=== PATIENT | male | born 1945 | race Caucasian/White ===

== ENCOUNTER 2017-03-24 12:43 | Emergency (ER) | payer MEDICARE ==
[~2017-03-24] VITALS: Ht 182.9 cm; Wt 100.0 kg
[~2017-03-24 12:43] MED LIST: ALBU8I INH; CARV6.252 PO; CENTCHW3 PO; CIPR500T93 PO; CODCAP5 PO; DIAZ5 PO; ENAL10TA7 PO; FLAG250T PO; GLUCTAB PO; LINA145C PO; LOPI600T PO; NIAC250C6 PO; PROB1TAB PO; VITA200017 PO
[2017-03-24 13:02] VITALS: BP 199/107; PULSE 62; RESP 16; TEMP 98.4; O2SAT 98
--- NOTE | 2017-03-24 13:03 | PD ---
HPI . marijuana intoxication Chief Complaint: marijuana intoxication Time Seen by Provider: 13:03 Travel History International Travel<30 days: No Contact w/Intl Traveler<30days: No Traveled to known affect area: No History of Present Illness HPI 71-year-old male with history of hypertension, COPD, diabetes and hyperlipidemia here with complaints of using too much vaporized marijuana. Apparently patient was trying to use vaporized marijuana for the first time to get high, and was told only inhale for 3 seconds, but decided to use the vaporizer marijuana for a total of 6 seconds plus. He says that immediately after using it he started to feel sick to his stomach. He got very anxious. He called 911 and started to feel better, but was told his blood pressure was elevated and brought into the ED for evaluation. PFSH Past Medical History Cardiac Catheterization: Yes Cardiovascular Problems: Yes High Cholesterol: Yes Chemotherapy: Yes Chest Pain: Yes COPD: Yes Coronary Artery Disease: Yes Diabetes: Yes Diminished Hearing: Yes ([place]) Diverticulitis: Yes Gastrointestinal Disorders: Yes (GIB, IBS) Hypertension: Yes Neurologic: No Psychiatric: No Respiratory: Yes Immunizations Current: Yes Myocardial Infarction: Yes (X's 3) Past Surgical History Tonsillectomy: Yes Other Surgery: Yes (OUTPATIENT COLONOSCOPY 2005) Social History Alcohol Use: Yes (Rarely) Tobacco Use: No Substance Use: No (Denies today) Allergies-Medications (Allergen,Severity, Reaction): Coded Allergies: Thorazine (Verified Allergy, Severe, SOB, 03/24/17) Tricor (Verified Allergy, Severe, Nausea/Vomiting, 03/24/17) Zoloft (Verified Adverse Reaction, Severe, Nausea, 03/24/17) Reported Meds & Prescriptions Reported Meds & Active Scripts Active Reported Pantoprazole (Pantoprazole Sodium) 40 Mg Tab 40 Mg PO DAILY Lisinopril 10 Mg Tab 10 Mg PO DAILY Metformin (Metformin HCl) 500 Mg Tab 500 Mg PO BID With meals Linzess (Linaclotide) 145 Mcg Cap 145 Mcg PO DAILY Valium (Diazepam) 5 Mg Tab 5 Mg PO DAILY PRN Coreg (Carvedilol) 6.25 Mg Tab 6.25 Mg PO BID Ventolin Hfa 18 GM Inh (Albuterol Sulfate) 90 Mcg/Act Aer 2 Puff INH Q6H PRN Review of Systems General / Constitutional: No: Fever Eyes: No: Visual changes HENT: No: Headaches Cardiovascular: No: Chest Pain or Discomfort Respiratory: No: Shortness of Breath Gastrointestinal: No: Abdominal Pain Genitourinary: No: Dysuria Musculoskeletal: No: Pain Skin: No Rash Neurologic: No: Weakness Psychiatric: No: Depression Endocrine: No: Polydipsia Hematologic/Lymphatic: No: Easy Bruising Physical Exam Narrative GENERAL: AAO x 3, no acute distress, Well-nourished, well-developed patient. SKIN: Warm and dry. No visible rashes or bruising. HEAD: Normocephalic and atraumatic. EYES: No scleral icterus. No injection or drainage. ENT: No nasal drainage noted. Mucous membranes pink. Airway patent. NECK: Supple, trachea midline. No JVD. CARDIOVASCULAR: Regular rate and rhythm without murmurs, gallops, or rubs. RESPIRATORY: Breath sounds equal bilaterally. No accessory muscle use. No rhonchi or rales. GASTROINTESTINAL: Abdomen soft, non-tender, nondistended. EXTREMITIES: No cyanosis or edema. BACK: No obvious deformity. NEURO: CN II-12 intact, almond grinder strength normal b/l, UE and LE 5/5, no focal deficits PSYCH: AAO x 3, normal affect. Data Data Last Documented VS Vital Signs Date Time Temp Pulse Resp B/P Pulse Ox O2 Delivery O2 Flow Rate FiO2 03/24/17 13:46 60 16 169/78 97 Room Air 03/24/17 13:02 98.4 Orders Electrocardiogram (03/24/17 ) MDM Medical Decision Making Medical Screen Exam Complete: Yes Emergency Medical Condition: Yes Medical Record Reviewed: Yes Differential Diagnosis Marijuana intoxication, polysubstance abuse, anxiety Narrative Course 71-year-old male here with complaints of using too much vaporized marijuana. He has no complaints at this present time. He does have a long-standing cardiac history, therefore we will check an EKG. Case has been discussed with Dr. Fritz. EKG was reviewed by Dr. Fritz. There were no changes compared to EKG on 2015. Patient cleared for discharge. Patient's came to pick him up. Patient verbalized understanding of instructions, questions were answered, and thanked me for their care. I advised them if their condition worsens, please return to the nearest emergency room for further care. Diagnosis Primary Impression: Marijuana intoxication Qualified Code: F12.920 - Marijuana intoxication, uncomplicated Patient Instructions: General Instructions Additional Instructions: Refrain from using marijuana. Follow up with your primary care provider. Please have your blood pressure followed by your primary care provider. Med/Other Pt SpecificInfo: No Change to Meds Disposition: 01 DISCHARGE HOME Condition: Stable Esthela Wakefield Mar 24, 2017 13:03
--- NOTE | 2017-03-24 13:42 | PD ---
Data Data Last Documented VS Vital Signs Date Time Temp Pulse Resp B/P Pulse Ox O2 Delivery O2 Flow Rate FiO2 03/24/17 13:46 60 16 169/78 97 Room Air 03/24/17 13:02 98.4 Orders Electrocardiogram (03/24/17 ) [facility] Supervised Visit with [facility]: Yes Narrative Course I, Dr. Fritz, have reviewed the advance practice practitioner's documentation and am in agreement, met with the patient face to face, made the diagnosis, and the medical decision making was done by me. *My assessment and Findings: Patient seen and examined by me in addition to Esthela Youssef PA-C, this is a gentleman who presented for a chief complaint of taking too much marijuana inhaled. He apparently had liquid marijuana and nebulizer and was only supposed to take 3 seconds and instead took 6 seconds inhalation. He states now he is coming down he feels fine. He states initially he felt very jittery and his wanted him to be evaluated for possible heart attack. He has not had any chest pain at all today and no shortness of breath. EKG was unchanged from his previous EKG. See no indication for further workup of this patient this time as is feeling well like to go home. Disposition: 01 DISCHARGE HOME Condition: Stable Sandip Fritz MD Mar 24, 2017 13:42
[2017-03-24 13:46] VITALS: BP 169/78; PULSE 60; RESP 16; O2SAT 97
[2017-03-24] MEDS ORDERED: PANT40TA3 PO (14:19)
[2017-03-24] MEDS ORDERED: LISI10TA3 PO (14:19)
[2017-03-24] MEDS ORDERED: METF500T PO (14:19)
[2017-03-24] MEDS ORDERED: LINA145C PO (14:19)
[2017-03-24] MEDS ORDERED: DIAZ5 PO (14:19)
[2017-03-24] MEDS ORDERED: CARV6.25 PO (14:19)
[2017-03-24] MEDS ORDERED: VENTAER INH (14:19)
--- NOTE | 2017-03-24 17:13 | EKG ---
Date Performed: 03/24/2017 Time Performed: 13:38:38 PTAGE: 71 years EKG: Sinus rhythm POSSIBLE ANTERIOR MYOCARDIAL INFARCTION INFERIOR MYOCARDIAL INFARCTION ABNORMAL ECG No significant c hange from prior electrocardiogram. PREVIOUS TRACING : 05/18/2016 08.48 DOCTOR: Kenneth Oconnor Interpretating Date/Time 03/24/2017 17:12:45
== END 2017-03-24 14:36 | disposition home or self-care (01) ==
LOC: NEPC 12:43
DX: T40.7X1A Poisoning by cannabis (derivatives), accidental (unintentional), initial encounter (principal); I25.2 Old myocardial infarction; R94.31 Abnormal electrocardiogram [ECG] [EKG]; I10 Essential (primary) hypertension; J44.9 Chronic obstructive pulmonary disease, unspecified; E11.9 Type 2 diabetes mellitus without complications; E78.5 Hyperlipidemia, unspecified; I25.10 Atherosclerotic heart disease of native coronary artery without angina pectoris; K58.9 Irritable bowel syndrome, unspecified
CPT/HCPCS: 93005

== ENCOUNTER 2017-10-03 08:03 | Observation (INO) | payer MEDICARE ==
[2017-10-03] VITALS (9 sets, daily range): BP systolic 123–193; BP diastolic 76–103; PULSE 55–71; RESP 14–18; TEMP 97.8–98.7; O2SAT 95–100
[~2017-10-03] VITALS: Ht 182.9 cm; Wt 105.0 kg
[~2017-10-03 08:03] MED LIST changes: -ALBU8I INH; +CARV6.25 PO; -CARV6.252 PO; -CENTCHW3 PO; -CIPR500T93 PO; -CODCAP5 PO; -ENAL10TA7 PO; -FLAG250T PO; -GLUCTAB PO; +LISI10TA3 PO; -LOPI600T PO; +METF500T PO; -NIAC250C6 PO; +PANT40TA3 PO; -PROB1TAB PO; +VENTAER INH; -VITA200017 PO
[2017-10-03] MEDS ORDERED: ENAL10TA PO (08:24)
[2017-10-03] MEDS ORDERED: GLIM1TAB PO (08:26)
[2017-10-03] MEDS ORDERED: ASPI-516 CHEW (08:26)
[2017-10-03] MEDS ORDERED: MILK140C (08:26)
[2017-10-03] MEDS ORDERED: MECLIZINE HCL 25 MG TAB PO ONE (08:30)
[2017-10-03] MEDS ORDERED: CARVEDILOL 6.25 MG TAB PO ONE (08:30)
[2017-10-03] MEDS ORDERED: LISINOPRIL 10 MG TAB PO ONE (08:30)
--- NOTE | 2017-10-03 08:34 | PD ---
HPI Chief Complaint: Neuro Symptoms/ Deficits Time Seen by Provider: 08:20 Travel History International Travel<30 days: No Contact w/Intl Traveler<30days: No Traveled to known affect area: No History of Present Illness HPI This is a 72-year-old male with history of diabetes mellitus, hypertension, COPD , presents today with complaints of dizziness. Patient states he woke up at 3: 00 this morning and when he got out of bed he experienced severe dizziness. He states it was so dizzy and nauseous that he had to crawl on the floor. He states that he went back to bed and when he woke up this morning, he still had the dizziness that was persistent. He denies any head pain or neck pain. Patient does report associated nausea. The patient has not had any previous symptoms such as this in the past. Patient does report that he is going through some stress in his life and wondered if that could possibly be causing this. He denies any numbness or tingling of his extremities. There is no weakness of his extremities. There is no blurry vision or double vision. There are no other complaints at this time my examination. PFSH Past Medical History Cardiac Catheterization: Yes Cardiovascular Problems: Yes High Cholesterol: Yes Chemotherapy: Yes Chest Pain: Yes COPD: Yes Cerebrovascular Accident: Yes Coronary Artery Disease: Yes Diabetes: Yes Diminished Hearing: Yes ([place]) Diverticulitis: Yes Gastrointestinal Disorders: Yes (GIB, IBS) Hypertension: Yes Neurologic: No Psychiatric: No Respiratory: Yes Immunizations Current: Yes Myocardial Infarction: Yes (X's 3) Past Surgical History Tonsillectomy: Yes Other Surgery: No (OUTPATIENT COLONOSCOPY 2005) Social History Alcohol Use: Yes (Rarely) Tobacco Use: No Substance Use: Yes ([facility]) Allergies-Medications (Allergen,Severity, Reaction): Coded Allergies: chlorpromazine (Verified Allergy, Severe, SOB, 10/03/17) fenofibrate (Verified Allergy, Severe, Nausea/Vomiting, 10/03/17) sertraline (Verified Adverse Reaction, Severe, Nausea, 10/03/17) Reported Meds & Prescriptions Reported Meds & Active Scripts Active Reported Aspirin 81 Mg Chew 81 Mg CHEW DAILY Milk Thistle 140 Mg Cap Glimepiride 1 Mg Tab 1 Mg PO DAILY Take with breakfast or first main meal Enalapril (Enalapril Maleate) 10 Mg Tab 10 Mg PO DAILY Pantoprazole (Pantoprazole Sodium) 40 Mg Tab 40 Mg PO DAILY Metformin (Metformin HCl) 500 Mg Tab 500 Mg PO BID With meals Linzess (Linaclotide) 145 Mcg Cap 145 Mcg PO DAILY PRN Valium (Diazepam) 5 Mg Tab 5 Mg PO DAILY PRN Coreg (Carvedilol) 6.25 Mg Tab 6.25 Mg PO BID Ventolin Hfa 18 GM Inh (Albuterol Sulfate) 90 Mcg/Act Aer 2 Puff INH Q6H PRN Review of Systems Except as stated in HPI: all other systems reviewed are Neg General / Constitutional: No: Fever, Chills HENT: No: Headaches, Neck Pain Cardiovascular: No: Chest Pain or Discomfort, Palpitations Respiratory: No: Cough, Shortness of Breath Gastrointestinal: Positive: Nausea, No: Vomiting, Abdominal Pain Genitourinary: No: Frequency, Dysuria Musculoskeletal: No: Weakness, Pain Neurologic: Positive: Dizziness, Other (Dizziness/vertigo symptoms.), No: Weakness, Syncope, Headache, Change in Mentation, Paresthesia, Sensory Disturbance Physical Exam Narrative GENERAL: Well-developed well-nourished male in no acute respiratory distress. SKIN: Focused skin assessment warm/dry. HEAD: Atraumatic. Normocephalic. EYES: Extraocular muscles were intact. No nystagmus. No scleral icterus. No injection or drainage. ENT: No nasal bleeding or discharge. Mucous membranes pink and moist. NECK: Trachea midline. CARDIOVASCULAR: Regular rate and rhythm. No murmur appreciated. RESPIRATORY: No accessory muscle use. Clear to auscultation. Breath sounds equal bilaterally. GASTROINTESTINAL: Abdomen soft, non-tender, nondistended. Hepatic and splenic margins not palpable. MUSCULOSKELETAL: No obvious deformities. No clubbing. No cyanosis. No edema. NEUROLOGICAL: Awake and alert. No obvious cranial nerve deficits. Motor grossly within normal limits. Normal speech. Patient has subjective dizziness and vertigo-like symptoms. He states it is not present when lying supine. When he raises up from the bed, he experiences these symptoms. Data Data Last Documented VS Vital Signs Date Time Temp Pulse Resp B/P (MAP) Pulse Ox O2 Delivery O2 Flow Rate FiO2 10/03/17 11:04 98 Nasal Cannula 2.00 10/03/17 10:00 55 17 172/89 (116) 10/03/17 08:13 98.7 Orders Orders Electrocardiogram (10/03/17 08:20) Complete Blood Count With Diff (10/03/17 08:20) Comprehensive Metabolic Panel (10/03/17 08:20) Ct Brain W/O Iv Contrast(Rout) (10/03/17 08:20) Iv Access Insert/Monitor (10/03/17 08:20) Ecg Monitoring (10/03/17 08:20) Oximetry (10/03/17 08:20) Meclizine (Antivert) (10/03/17 08:30) Carvedilol (Coreg) (10/03/17 08:30) Lisinopril (Prinivil) (10/03/17 08:30) Place In Observation (10/03/17 ) Vital Signs (Adult) Q4H (10/03/17 10:50) Activity Oob With Assistance (10/03/17 10:50) Corduroy Cutting Supervisor / Telemetry .CONTINUOUS (10/03/17 10:50) Diet 1800 Ada Cons Carb (10/03/17 Lunch) Sodium Chlor 0.9% 1000 Ml Inj (Ns 1000 M (10/03/17 10:50) Sodium Chloride 0.9% Flush (Ns Flush) (10/03/17 11:00) Sodium Chloride 0.9% Flush (Ns Flush) (10/03/17 21:00) Acetaminophen (Tylenol) (10/03/17 11:00) Ondansetron Inj (Zofran Inj) (10/03/17 11:00) Basic Metabolic Panel (Bmp) (10/04/17 06:00) Complete Blood Count With Diff (10/04/17 06:00) Resp Oxygen Prashant C Titrat 1-4 L (10/03/17 ) Pt Request For Service (10/03/17 10:50) Scd Bilateral/Knee High SOO.BID (10/03/17 10:50) Naloxone Inj (Narcan Inj) (10/03/17 11:00) Docusate Sodium-Senna (Kaylee-Colace) (10/03/17 21:00) Magnesium Hydroxide Liq (Milk Of Magnesi (10/03/17 11:00) Orthostatic Vital Signs (10/03/17 10:59) Orthostatic Blood Pressure (10/03/17 10:59) Albuterol Hfa Inh (Proair Hfa Inh) (10/03/17 11:00) Aspirin Chew (Aspirin Chew) (10/04/17 09:00) Carvedilol (Coreg) (10/03/17 21:00) Diazepam (Valium) (10/03/17 11:00) Enalapril (Vasotec) (10/04/17 09:00) Pantoprazole (Protonix) (10/04/17 09:00) Patient Own Medication (10/04/17 09:00) Meclizine (Antivert) (10/03/17 14:00) Meclizine (Antivert) (10/03/17 14:00) Mri Brain W/O Contrast (10/03/17 ) Mra Brain W/O Contrast (Cow) (10/03/17 ) Admit Order (Ed Use Only) (10/03/17 11:47) Labs Laboratory Tests Test 10/03/17 08:32 White Blood Count 6.8 TH/MM3 Red Blood Count 4.60 MIL/MM3 Hemoglobin 14.7 GM/DL Hematocrit 41.5 % Mean Corpuscular Volume 90.2 FL Mean Corpuscular Hemoglobin 32.1 PG Mean Corpuscular Hemoglobin Concent 35.6 % Red Cell Distribution Width 13.1 % Platelet Count 243 TH/MM3 Mean Platelet Volume 7.8 FL Neutrophils (%) (Auto) 57.1 % Lymphocytes (%) (Auto) 29.4 % Monocytes (%) (Auto) 6.9 % Eosinophils (%) (Auto) 5.7 % Basophils (%) (Auto) 0.9 % Neutrophils # (Auto) 3.9 TH/MM3 Lymphocytes # (Auto) 2.0 TH/MM3 Monocytes # (Auto) 0.5 TH/MM3 Eosinophils # (Auto) 0.4 TH/MM3 Basophils # (Auto) 0.1 TH/MM3 CBC Comment DIFF FINAL Differential Comment Blood Urea Nitrogen 15 MG/DL Creatinine 1.13 MG/DL Random Glucose 169 MG/DL Total Protein 6.6 GM/DL Albumin 3.8 GM/DL Calcium Level 9.0 MG/DL Alkaline Phosphatase 70 U/L Aspartate Amino Transf (AST/SGOT) 35 U/L Alanine Aminotransferase (ALT/SGPT) 43 U/L Total Bilirubin 0.9 MG/DL Sodium Level 135 MEQ/L Potassium Level 4.6 MEQ/L Chloride Level 105 MEQ/L Carbon Dioxide Level 22.9 MEQ/L Anion Gap 7 MEQ/L Estimat Glomerular Filtration Rate 64 ML/MIN MDM Medical Decision Making Medical Screen Exam Complete: Yes Emergency Medical Condition: Yes Differential Diagnosis Metabolic derangement versus vertigo versus posterior circulation CVA Narrative Course 72-year-old male presents today with complaints of dizziness. Patient states he woke up at 3 AM with the dizziness. CT scan shows no evidence of acute findings. Patient was given meclizine. Despite the meclizine, he still has persistent dizziness. The patient will be admitted to the hospital. The case was discussed with Dr. Yoo, [facility] hospitalist, who is agreeable. He will need a posterior circulation stroke workup. Diagnosis Primary Impression: Persistent postural-perceptual dizziness Additional Impression: Rule out posterior circulation CVA Admitting Information Admitting Physician Requests: Observation Scripts Meclizine HCl (Meclizine 25) 25 Mg Tab 25 MG PO Q8HR Y for vertigo/dizziness for 30 Days, TAB 0 Refills Prov: Perla Sahu 10/04/17 Octaviano Hickey MD Oct 03, 2017 08:34
[2017-10-03 08:42] LABS: AUTOMATED NEUTROPHIL # 3.9 TH/MM3 (1.8-7.7); BASOPHIL # 0.1 TH/MM3 (0-0.2); BASOPHIL % 0.9 % (0.0-2.0); EOSINOPHIL # 0.4 TH/MM3 (0-0.4); EOSINOPHIL % 5.7 % (0.0-4.0); HEMATOCRIT 41.5 % (39.0-51.0); HEMOGLOBIN 14.7 GM/DL (13.0-17.0); LYMPH % 29.4 % (9.0-44.0); MEAN CELL VOLUME 90.2 FL (80.0-100.0); MEAN CORPUSCULAR HEMOGLOBIN 32.1 PG (27.0-34.0); MEAN CORPUSCULAR HGB CONC 35.6 % (32.0-36.0); MEAN PLATELET VOLUME 7.8 FL (7.0-11.0); MONO % 6.9 % (0.0-8.0); MONOCYTE # 0.5 TH/MM3 (0-0.9); NEUT % 57.1 % (16.0-70.0); PLATELET COUNT 243 TH/MM3 (150-450); RED CELL DISTRIBUTION WIDTH 13.1 % (11.6-17.2); WHITE BLOOD COUNT 6.8 TH/MM3 (4.0-11.0)
[2017-10-03 08:56] LABS: ALT (GPT) 43 U/L (12-78)
[2017-10-03 08:59] LABS: ALKALINE PHOSPHATASE 70 U/L (45-117); TOTAL BILIRUBIN ADULT 0.9 MG/DL (0.2-1.0); TOTAL PROTEIN 6.6 GM/DL (6.4-8.2)
[2017-10-03 09:00] LABS: ALBUMIN 3.8 GM/DL (3.4-5.0); AST (GOT) 35 U/L (15-37); BICARBONATE 22.9 MEQ/L (21.0-32.0); BLOOD UREA NITROGEN 15 MG/DL (7-18); CHLORIDE 105 MEQ/L (98-107); CREATININE 1.13 MG/DL (0.60-1.30); GLOMERULAR FILTRATION RATE 64 ML/MIN (>89); GLUCOSE,RANDOM 169 MG/DL (74-106); SODIUM (NA) 135 MEQ/L (136-145)
--- NOTE | 2017-10-03 09:15 | RADRPT ---
EXAM DATE/TIME: 10/03/2017 08:57 [place] COMPARISON: CT BRAIN W/O CONTRAST, May 18, 2016, 10:39. INDICATIONS : Dizziness RADIATION DOSE: 45.72 CTDIvol (mGy) MEDICAL HISTORY : Cerebrovascular disease. Cardiovascular disease Hypertension.Diabetes SURGICAL HISTORY : Tonsillectomy. ENCOUNTER: Initial ACUITY: 1 day PAIN SCALE: 1/10 LOCATION: Bilateral cranial TECHNIQUE: Multiple contiguous axial images were obtained of the head. Using automated exposure control and adj ustment of the mA and/or kV according to patient size, radiation dose was kept as low as reasonably a chievable to obtain optimal diagnostic quality images. DICOM format image data is available electro nically for review and comparison. FINDINGS: CEREBRUM: The ventricles are normal for age. No evidence of midline shift, mass lesion, hemorrhage or acute in farction. No extra-axial fluid collections are seen. POSTERIOR FOSSA: The cerebellum and brainstem are intact. The 4th ventricle is midline. The cerebellopontine angle i s unremarkable. EXTRACRANIAL: The visualized portion of the orbits is intact. SKULL: The calvaria is intact. No evidence of skull fracture. Minimal right maxillary sinus disease CONCLUSION: Negative for an acute process. Surendra Warner MD FACR on October 03, 2017 at 9:12 Board Certified Radiologist. This report was verified electronically.
[2017-10-03] MEDS ORDERED: SODIUM CHLOR 0.9% 1000 ML INJ 1,000 ML IV SCH (10:50)
--- NOTE | 2017-10-03 10:59 | HHI.HP ---
HPI Service [facility] Primary Care Physician Pillo Barclay MD Admission Diagnosis Chief Complaint: dizziness Travel History International Travel<30 Days: No Contact w/Intl Traveler <30 Da: No Traveled to Known Affected Are: No History of Present Illness Mr. Soto is a 72 y/o WM with HTN, TX x 3, hyperlipidemia, COPD, diabetes mellitus, IBS and hx of diverticulitis. Patient presents today with complaints of dizziness. Patient states he woke up at 3:00AM this morning to use the bathroom and when he got out of bed he experienced severe dizziness. Patient describes he felt as if his equilibrium was off, like he was on the verge of passing out. This sensation was present with laying, sitting or standing. The disequilibrium feeling was worse when he moved his head. He states it was so dizzy and nauseous that he had to crawl on the floor. Patient He states that he went back to bed and when he woke up this morning, he still had the dizziness that was persistent. He denies any head pain or neck pain. Patient does report associated nausea. Patient denies focal weakness, slurred speech, headache or visual changes. The patient has not had any previous symptoms such as this in the past. Patient does report that he is going through some stress in his life and wondered if that could possibly be causing this. He denies any numbness or tingling of his extremities. There is no weakness of his extremities. There is no blurry vision or double vision. There are no other complaints at this time my examination. Patient recently stated on Albuterol inhaler. About 3 weeks ago patient also stopped taking Gemfibrozil 600 mg BID and was started on priglium. Patient also stopped taking Enalapril about 3 weeks ago. Patient does take Valium as needed for anxiety, he has been taking the Valium every evening after dinner. Review of Systems Ears, nose, mouth, throat: COMPLAINS OF: Vertigo Gastrointestinal: COMPLAINS OF: Nausea Neurologic: COMPLAINS OF: Poor Balance Past Family Social History Past Medical History Diabetes mellitus, type 2, with complications of peripheral neuropathy HTN Hyperlipidemia COPD, PFTs 11/06/14 which showed obstructive lung defect with response to acutely inhaled bronchodilator. CAD with hx of TX Hx of diverticulitis IBS Hepatitis C, treated with PEG and Interferon in the late 1990's with clearing of the virus (per patient). Fatty liver Tess's syndrome Past Surgical History Cataract surgery Tonsillectomy/Adenoidectomy EGD with dilation/colonoscopy on 10/30/[address] Sanchez --> Inflammation at the GE junction s/p dilation with 15mm Savary dilator, melanosis coli diffusely throughout the colon, polyp in the sigmoid colon, moderate diverticulosis in the sigmoid colon, and medium internal hemorrhoids. Pathology revealed hyperplastic polyp and melanosis coli. Reported Medications Aspirin 81 Mg Chew 81 Mg CHEW DAILY Milk Thistle 140 Mg Cap Glimepiride 1 Mg Tab 1 Mg PO DAILY Take with breakfast or first main meal Enalapril (Enalapril Maleate) 10 Mg Tab 10 Mg PO DAILY Pantoprazole (Pantoprazole Sodium) 40 Mg Tab 40 Mg PO DAILY Metformin (Metformin HCl) 500 Mg Tab 500 Mg PO BID With meals Linzess (Linaclotide) 145 Mcg Cap 145 Mcg PO DAILY Valium (Diazepam) 5 Mg Tab 5 Mg PO DAILY PRN Coreg (Carvedilol) 6.25 Mg Tab 6.25 Mg PO BID Ventolin Hfa 18 GM Inh (Albuterol Sulfate) 90 Mcg/Act Aer 2 Puff INH Q6H PRN Allergies: Coded Allergies: chlorpromazine (Verified Allergy, Severe, SOB, 10/03/17) fenofibrate (Verified Allergy, Severe, Nausea/Vomiting, 10/03/17) sertraline (Verified Adverse Reaction, Severe, Nausea, 10/03/17) Family History Noncontributory Social History On prior visits patient was (+)Alcohol abuse - drank vodka daily. 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 SKIN: No rashes, ecchymoses or lesions. Cool and dry. HEAD: Atraumatic. Normocephalic. No temporal or scalp tenderness. EYES: Extraocular motions intact. No scleral icterus. No injection or drainage. CARDIOVASCULAR: Regular rate and rhythm RESPIRATORY: Clear to auscultation. Breath sounds equal bilaterally. GASTROINTESTINAL: Abdomen soft, non-tender, nondistended. MUSCULOSKELETAL: Extremities without clubbing, cyanosis, or edema. No joint tenderness, effusion, or edema noted. No calf tenderness. Negative Homans sign bilaterally. NEUROLOGICAL: Awake and alert. No focal weakness. No ataxia. Motor and sensory grossly within normal limits. Five out of 5 muscle strength in all muscle groups. Slow speech. Laboratory Laboratory Tests Test 10/03/17 08:32 White Blood Count 6.8 Red Blood Count 4.60 Hemoglobin 14.7 Hematocrit 41.5 Mean Corpuscular Volume 90.2 Mean Corpuscular Hemoglobin 32.1 Mean Corpuscular Hemoglobin Concent 35.6 Red Cell Distribution Width 13.1 Platelet Count 243 Mean Platelet Volume 7.8 Neutrophils (%) (Auto) 57.1 Lymphocytes (%) (Auto) 29.4 Monocytes (%) (Auto) 6.9 Eosinophils (%) (Auto) 5.7 Basophils (%) (Auto) 0.9 Neutrophils # (Auto) 3.9 Lymphocytes # (Auto) 2.0 Monocytes # (Auto) 0.5 Eosinophils # (Auto) 0.4 Basophils # (Auto) 0.1 CBC Comment DIFF FINAL Differential Comment Blood Urea Nitrogen 15 Creatinine 1.13 Random Glucose 169 Total Protein 6.6 Albumin 3.8 Calcium Level 9.0 Alkaline Phosphatase 70 Aspartate Amino Transf (AST/SGOT) 35 Alanine Aminotransferase (ALT/SGPT) 43 Total Bilirubin 0.9 Sodium Level 135 Potassium Level 4.6 Chloride Level 105 Carbon Dioxide Level 22.9 Anion Gap 7 Estimat Glomerular Filtration Rate 64 Result Diagram: 10/03/1732 10/03/17831 Imaging Last Impressions Head CT 10/03/17819 Signed Impressions: Service Date/Time: Tuesday, October 03, 2017 08:57 - CONCLUSION: Negative for an acute process. Surendra Warner MD FACR [place] VTE Risk Assessment Caprini VTE Risk Assessment: Mod/High Risk (score >= 2) Caprini Risk Assessment Model Point Value = 1 Point Value = 2 Point Value = 3 Point Value = 5 Age 41-60 Minor surgery BMI > 25 kg/m2 Swollen legs Varicose veins or History of unexplained or recurrent spontaneous Oral contraceptives or hormone replacement Sepsis (< 1 month) Serious lung disease, including pneumonia (< 1 month) Abnormal pulmonary function Acute myocardial infarction Congestive heart failure (< 1 month) History of inflammatory bowel disease Medical patient at bed rest Age 61-74 Arthroscopic surgery Major open surgery (> 45 min) Laparoscopic surgery (> 45 min) Malignancy Confined to bed (> 72 hours) Immobilizing plaster cast Central venous access Age >= 75 History of VTE Family history of VTE Factor V Leiden Prothrombin [id number] Lupus anticoagulant Anticardiolipin antibodies Elevated serum homocysteine Heparin-induced thrombocytopenia Other congenital or acquired thrombophilia Stroke (< 1 month) Elective arthroplasty Hip, pelvis, or leg fracture Acute spinal cord injury (< 1 month) Prophylaxis Regimen Total Risk Factor Score Risk Level Prophylaxis Regimen 0-1 Low Early ambulation 2 Moderate Order ONE of the following: *Sequential Compression Device (SCD) *Heparin 5000 units SQ BID 3-4 Higher Order ONE of the following medications: *Heparin 5000 units SQ TID *Enoxaparin/Lovenox 40 mg SQ daily (WT < 150 kg, CrCl > 30 mL/min) *Enoxaparin/Lovenox 30 mg SQ daily (WT < 150 kg, CrCl > 10-29 mL/min) *Enoxaparin/Lovenox 30 mg SQ BID (WT < 150 kg, CrCl > 30 mL/min) AND/OR *Sequential Compression Device (SCD) 5 or more Highest Order ONE of the following medications: *Heparin 5000 units SQ TID (Preferred with Epidurals) *Enoxaparin/Lovenox 40 mg SQ daily (WT < 150 kg, CrCl > 30 mL/min) *Enoxaparin/Lovenox 30 mg SQ daily (WT < 150 kg, CrCl > 10-29 mL/min) *Enoxaparin/Lovenox 30 mg SQ BID (WT < 150 kg, CrCl > 30 mL/min) AND *Sequential Compression Device (SCD) Assessment and Plan Problem List: (1) Dizziness ICD Codes: R42 - Dizziness and giddiness Status: Acute Plan: Dizziness Possible vertigo Mr. Soto is a 72 y/o WM with HTN, hyperlipidemia, COPD, diabetes mellitus, IBS and hx of diverticulitis. Patient presents today with complaints of dizziness. Patient states he woke up at 3:00 this morning and when he got out of bed he experienced severe dizziness. He states it was so dizzy and nauseous that he had to crawl on the floor. He states that he went back to bed and when he woke up this morning, he still had the dizziness that was persistent. He denies any head pain or neck pain. Patient does report associated nausea. The patient has not had any previous symptoms such as this in the past. Patient does report that he is going through some stress in his life and wondered if that could possibly be causing this. He denies any numbness or tingling of his extremities. There is no weakness of his extremities. There is no blurry vision or double vision. There are no other complaints at this time my examination. - CT head reviewed and reveals: Negative for an acute process - Meclizine 25 mg TID - Orthostatic vital signs - US bilateral carotid arteries - MRI and MRA brain HTN - Patient's BP on admission 193/90 - resume patient's home lisinopril 10 mg daily and coreg 6.25 mg daily - PRN clonidine added - monitor BP Diabetes Mellitus - diabetic diet - accuchecks ACHS with SSI - hold oral diabetic medications at this time (2) HTN (hypertension) ICD Codes: I10 - Essential (primary) hypertension Status: Chronic (3) Diabetes ICD Codes: E11.9 - Type 2 diabetes mellitus without complications Status: Chronic Plan: Patient examined. Assessment and plan formulated with Perla Sahu PA-C. I agree with the above. disequilibrium complaints. nausea. mri/a pending. tele. orthostatics. meclizine. PT Perla Sahu Oct 03, 2017 10:59 Mati Yoo MD Oct 03, 2017 12:27
[2017-10-03] MEDS ORDERED: NALOXONE HCL 0.4 MG/ML AMP IV PUSH PRN (11:00)
[2017-10-03] MEDS ORDERED: SODIUM CHLORIDE 0.9% FLUSH 10 ML FLUSH IV FLUSH PRN (11:00)
[2017-10-03] MEDS ORDERED: ONDANSETRON HCL 4 MG/2 ML VIAL IVP PRN (11:00)
[2017-10-03] MEDS ORDERED: ACETAMINOPHEN 325 MG TAB PO PRN (11:00)
[2017-10-03] MEDS ORDERED: MAGNESIUM HYDROXIDE SUSP 30 ML CUP PO PRN (11:00)
[2017-10-03] MEDS ORDERED: ALBUTEROL SULFATE 90 MCG/ACT HFA 8 GM INHALER INH PRN (11:00)
[2017-10-03] MEDS ORDERED: DIAZEPAM 5 MG TAB PO PRN (11:00)
[2017-10-03] MEDS ORDERED: cloNIDine HCL 0.1 MG TAB PO PRN (13:00)
--- NOTE | 2017-10-03 13:28 | RADRPT ---
EXAM DATE/TIME: 10/03/2017 12:52 [facility] COMPARISON: No previous studies available for comparison. INDICATIONS : Dizziness. Unsteady gait. MEDICAL HISTORY : Hypertension. Diabetes mellitus type 2. Myocardial infarction. IBS, COPD SURGICAL HISTORY : Cataract ENCOUNTER: Initial ACUITY: 1 day PAIN SCORE: 0/10 LOCATION: cranial Please note a normal MRA of the brain does not entirely exclude the possibility of a small aneurysm, nor the possibility of distal intracranial vessel disease. TECHNIQUE: 3D time of flight MRA was performed. Source images, multiplanar STS MIP, and 3D volume MIP reconstru ctions were reviewed. FINDINGS: There is excellent visualization of the major intracranial arteries out to the second-order branch ve ssels. There is no evidence for aneurysm, vessel truncation or stenosis, and no evidence for vascula r malformation. CONCLUSION: Normal examination. Francesco Fajardo MD on October 03, 2017 at 13:22 Board Certified Radiologist. This report was verified electronically.
--- NOTE | 2017-10-03 13:37 | RADRPT ---
EXAM DATE/TIME: 10/03/2017 12:52 [facility] COMPARISON: No previous studies available for comparison. INDICATIONS : Dizziness. Unsteady gait. MEDICAL HISTORY : Hypertension. Diabetes mellitus type 2. Myocardial infarction. COPD, IBS SURGICAL HISTORY : Abdominal aortic aneurysm repair. Cataract ENCOUNTER: Initial ACUITY: 1 day PAIN SCORE: 0/10 LOCATION: cranial TECHNIQUE: Multiplanar, multisequence MRI of the brain was performed without contrast. FINDINGS: CEREBRUM: The ventricles are normal for age. No evidence of midline shift, mass lesion, hemorrhage or acute in farction. No extraaxial fluid collections are seen. The pituitary gland and suprasellar cistern are normal in configuration. WHITE MATTER: Scattered punctate areas of mild white matter T2 prolongation, mainly in left frontal region which ap pear benign, likely microvascular ischemic in etiology. POSTERIOR FOSSA: The cerebellum and brainstem are intact. The 4th ventricle is midline. The cerebellopontine angle is unremarkable. The cerebellar tonsils are normal in position. DIFFUSION IMAGING: No focal areas of restricted diffusion are seen. No evidence of acute infarction. EXTRACRANIAL: The visualized portions of the orbits and paranasal sinuses are unremarkable. There is fluid in the m astoids bilaterally. CONCLUSION: Benign-appearing white matter signal changes. Bilateral mastoiditis. Francesco Fajardo MD on October 03, 2017 at 13:34 Board Certified Radiologist. This report was verified electronically.
[2017-10-03] MEDS ORDERED: MECLIZINE HCL 25 MG TAB PO SCH (14:00)
--- NOTE | 2017-10-03 14:31 | RADRPT ---
EXAM DATE/TIME: 10/03/2017 13:45 [facility] COMPARISON: No previous studies available for comparison. INDICATIONS : Syncope. MEDICAL HISTORY : Hypercholesterolemia. Myocardial infarction. Chronic obstructive pulmonary disease. CAD. Hypertension . Dyspnea. Diverticulitis. IBS. C-diff. SURGICAL HISTORY : Tonsillectomy. Chemotherapy. Colonoscopy. ENCOUNTER: Initial ACUITY: 1 day PAIN SCORE: 2/10 LOCATION: Bilateral neck PEAK SYSTOLIC VELOCITIES (cm/sec): ICA/CCA RATIO: Right: 0.7 Left: 0.7 ICA: Right: 66 Left: 75 CCA: Right: 99 Left: 104 ECA: Right: 48 Left: 60 VERTEBRAL: Right: 43 antegrade Left: 37 antegrade Elevated flow velocities and ICA/CCA ratios have been found to correlate with increased degrees of vessel stenosis, calculated as percentage of diameter relative to a normal segment of distal ICA/CCA FINDINGS: RIGHT CAROTID: No significant stenosis is visualized. The waveforms are within normal limits. LEFT CAROTID: No significant stenosis is visualized. The waveforms are within normal limits. VERTEBRAL ARTERIES: Antegrade flow is seen in both vertebral arteries. MISCELLANEOUS: None. CONCLUSION: 1. No evidence of hemodynamically significant lesion. Narendra Singh MD on October 03, 2017 at 14:28 Board Certified Radiologist. This report was verified electronically.
[2017-10-03] MEDS: MECLIZINE HCL 25 MG TAB PO SCH ×2 (14:47→21:45)
[2017-10-03] MEDS: SODIUM CHLORIDE 0.9% FLUSH 10 ML FLUSH IV FLUSH SCH (21:00)
[2017-10-03] MEDS: CARVEDILOL 6.25 MG TAB PO SCH (21:45)
[2017-10-03] MEDS: DOCUSATE SODIUM 50 MG/SENNA 8.6 MG TAB PO SCH (21:45)
--- NOTE | 2017-10-03 21:59 | EKG ---
Date Performed: 10/03/2017 Time Performed: 08:31:20 PTAGE: 72 years EKG: SINUS BRADYCARDIA MARKED LEFT AXIS DEVIATION LOW QRS VOLTAGE IN EXTREMITY LEADS ABNORMAL EC G PREVIOUS TRACING : 03/24/2017 13.38 DOCTOR: Joaquim Cunha Interpretating Date/Time 10/03/2017 21:56:24
[2017-10-04] VITALS (7 sets, daily range): BP systolic 123–135; BP diastolic 73–83; PULSE 59–65; RESP 18; TEMP 98–98.5; O2SAT 94–95
[2017-10-04] MEDS: MECLIZINE HCL 25 MG TAB PO SCH ×3 (00:44→13:15)
[2017-10-04 07:04] LABS: AUTOMATED NEUTROPHIL # 3.5 TH/MM3 (1.8-7.7); BASOPHIL % 0.7 % (0.0-2.0); EOSINOPHIL # 0.4 TH/MM3 (0-0.4); EOSINOPHIL % 5.9 % (0.0-4.0); HEMATOCRIT 41.7 % (39.0-51.0); HEMOGLOBIN 14.6 GM/DL (13.0-17.0); LYMPH % 32.3 % (9.0-44.0); LYMPHOCYTE # 2.1 TH/MM3 (1.0-4.8); MEAN CELL VOLUME 90.4 FL (80.0-100.0); MEAN CORPUSCULAR HEMOGLOBIN 31.6 PG (27.0-34.0); MEAN PLATELET VOLUME 7.3 FL (7.0-11.0); MONO % 6.9 % (0.0-8.0); MONOCYTE # 0.4 TH/MM3 (0-0.9); NEUT % 54.2 % (16.0-70.0); PLATELET COUNT 227 TH/MM3 (150-450); RED BLOOD COUNT 4.61 MIL/MM3 (4.50-5.90); RED CELL DISTRIBUTION WIDTH 13.6 % (11.6-17.2); WHITE BLOOD COUNT 6.5 TH/MM3 (4.0-11.0)
[2017-10-04 07:27] LABS: BICARBONATE 24.6 MEQ/L (21.0-32.0); CALCIUM 8.8 MG/DL (8.5-10.1); CREATININE 1.06 MG/DL (0.60-1.30)
[2017-10-04] MEDS: CARVEDILOL 6.25 MG TAB PO SCH (08:27)
[2017-10-04] MEDS: SODIUM CHLORIDE 0.9% FLUSH 10 ML FLUSH IV FLUSH SCH (08:28)
[2017-10-04] MEDS: DOCUSATE SODIUM 50 MG/SENNA 8.6 MG TAB PO SCH (08:28)
[2017-10-04] MEDS ORDERED: MECL1TAB42 PO ×2 (08:30→12:03)
--- NOTE | 2017-10-04 08:37 | HHI.PR ---
Subjective Remarks Patient resting in bed reports dizziness has resolved. Patient able turn head and get out of bed without difficult or dizziness Patient reports feeling much better today Objective Vitals Vital Signs Date Time Temp Pulse Resp B/P (MAP) Pulse Ox O2 Delivery O2 Flow Rate FiO2 10/04/17 08:12 98.0 65 18 132/83 (99) 94 10/04/17 07:55 60 10/04/17 04:34 59 10/04/17 03:56 21 10/04/17 03:40 98.2 62 18 123/73 (90) 95 10/04/17 00:49 98.1 59 18 125/77 (93) 94 10/03/17 20:20 98.1 71 18 123/76 (92) 95 10/03/17 15:52 68 10/03/17 15:14 98.0 70 18 160/87 (111) 96 10/03/17 13:32 97.8 57 18 175/103 (127) 99 162/83 (109) 171/98 (122) 10/03/17 12:01 56 18 188/90 (122) 100 Nasal Cannula 2.00 10/03/17 11:04 98 Nasal Cannula 2.00 10/03/17 10:00 55 17 172/89 (116) 97 Nasal Cannula 2.00 Result Diagram: 10/04/17 0645 10/04/17 0645 Other Results Laboratory Tests Test 10/03/17 08:32 10/04/17 06:45 White Blood Count 6.8 TH/MM3 6.5 TH/MM3 Red Blood Count 4.60 MIL/MM3 4.61 MIL/MM3 Hemoglobin 14.7 GM/DL 14.6 GM/DL Hematocrit 41.5 % 41.7 % Mean Corpuscular Volume 90.2 FL 90.4 FL Mean Corpuscular Hemoglobin 32.1 PG 31.6 PG Mean Corpuscular Hemoglobin Concent 35.6 % 35.0 % Red Cell Distribution Width 13.1 % 13.6 % Platelet Count 243 TH/MM3 227 TH/MM3 Mean Platelet Volume 7.8 FL 7.3 FL Neutrophils (%) (Auto) 57.1 % 54.2 % Lymphocytes (%) (Auto) 29.4 % 32.3 % Monocytes (%) (Auto) 6.9 % 6.9 % Eosinophils (%) (Auto) 5.7 % 5.9 % Basophils (%) (Auto) 0.9 % 0.7 % Neutrophils # (Auto) 3.9 TH/MM3 3.5 TH/MM3 Lymphocytes # (Auto) 2.0 TH/MM3 2.1 TH/MM3 Monocytes # (Auto) 0.5 TH/MM3 0.4 TH/MM3 Eosinophils # (Auto) 0.4 TH/MM3 0.4 TH/MM3 Basophils # (Auto) 0.1 TH/MM3 0.0 TH/MM3 CBC Comment DIFF FINAL DIFF FINAL Differential Comment Blood Urea Nitrogen 15 MG/DL 15 MG/DL Creatinine 1.13 MG/DL 1.06 MG/DL Random Glucose 169 MG/DL 157 MG/DL Total Protein 6.6 GM/DL Albumin 3.8 GM/DL Calcium Level 9.0 MG/DL 8.8 MG/DL Alkaline Phosphatase 70 U/L Aspartate Amino Transf (AST/SGOT) 35 U/L Alanine Aminotransferase (ALT/SGPT) 43 U/L Total Bilirubin 0.9 MG/DL Sodium Level 135 MEQ/L 136 MEQ/L Potassium Level 4.6 MEQ/L 4.3 MEQ/L Chloride Level 105 MEQ/L 104 MEQ/L Carbon Dioxide Level 22.9 MEQ/L 24.6 MEQ/L Anion Gap 7 MEQ/L 7 MEQ/L Estimat Glomerular Filtration Rate 64 ML/MIN 68 ML/MIN Imaging Last Impressions Head CT 10/03/17 0820 Signed Impressions: Service Date/Time: Tuesday, October 03, 2017 08:57 - CONCLUSION: Negative for an acute process. Surendra Warner MD FACR Objective Remarks GENERAL: This is a well-nourished, well-developed patient, in no apparent distress. CARDIOVASCULAR: Regular rate and rhythm RESPIRATORY: Clear to auscultation. Breath sounds equal bilaterally. GASTROINTESTINAL: Abdomen soft, non-tender, nondistended. Normal active bowel sounds MUSCULOSKELETAL: Extremities without clubbing, cyanosis, or edema. NEURO: Alert & Oriented x4 to person, place, time, situation. Moves all ext x4 A/P Problem List: (1) Dizziness ICD Codes: R42 - Dizziness and giddiness Status: Acute Plan: Dizziness- Resolved vertigo Mr. Soto is a 72 y/o WM with HTN, hyperlipidemia, COPD, diabetes mellitus, IBS and hx of diverticulitis. Patient presents today with complaints of dizziness. Patient states he woke up at 3:00 this morning and when he got out of bed he experienced severe dizziness. He states it was so dizzy and nauseous that he had to crawl on the floor. He states that he went back to bed and when he woke up this morning, he still had the dizziness that was persistent. He denies any head pain or neck pain. Patient does report associated nausea. The patient has not had any previous symptoms such as this in the past. Patient does report that he is going through some stress in his life and wondered if that could possibly be causing this. He denies any numbness or tingling of his extremities. There is no weakness of his extremities. There is no blurry vision or double vision. There are no other complaints at this time my examination. - CT head reviewed and reveals: Negative for an acute process - Meclizine 25 mg TID, dizziness resolved. - Orthostatic vital signs, neg - US bilateral carotid arteries: No evidence of hemodynamically significant lesion - MRI brain: Benign-appearing white matter signal changes. Bilateral mastoiditis - MRA brain: Normal exam HTN- improved - Patient's BP on admission 193/90 - resume patient's home lisinopril 10 mg daily and coreg 6.25 mg daily - PRN clonidine added - monitor BP Diabetes Mellitus- stable - diabetic diet - accuchecks ACHS with SSI - hold oral diabetic medications at this time Patient vertigo resolved after Meclizine DC patient home in stable condition on diabetic diet with prescription for Meclizine as needed Patient to follow up with PCP Dr. Barclay in 1 week (2) HTN (hypertension) ICD Codes: I10 - Essential (primary) hypertension Status: Chronic (3) Diabetes ICD Codes: E11.9 - Type 2 diabetes mellitus without complications Status: Chronic Plan: Patient examined. Assessment and plan formulated with Perla Sahu PA-C. I agree with the above. disequilibrium complaints. nausea. much better today ambulating with PT probably BPV. no cva or arrhythmia identified. cont meclizine and f/u pcp Perla Sahu Oct 04, 2017 08:37 Mati Yoo MD Oct 04, 2017 13:55
[2017-10-04] MEDS ORDERED: DEXTROSE 50% IN WATER 50 ML VIAL(D50) IV PUSH PRN (08:45)
[2017-10-04] MEDS ORDERED: GLUCAGON 1 MG/ML VIAL OTHER PRN (08:45)
[2017-10-04] MEDS ORDERED: PATIENT OWN MEDICATION (Linaclotide (Linzess) 145 MCG) PO SCH (09:00)
[2017-10-04] MEDS ORDERED: ENALAPRIL MALEATE 10 MG TAB PO SCH (09:00)
[2017-10-04] MEDS ORDERED: PANTOPRAZOLE SOD 40 MG DELAYED RELEASE TAB PO SCH (09:00)
[2017-10-04] MEDS ORDERED: ASPIRIN 81 MG CHEW TAB CHEW SCH (09:00)
[2017-10-04] MEDS ORDERED: PNEUMOCOCCAL POLYVALENT INJ 25 MCG/0.5 ML SYR IM ONE (10:00)
[2017-10-04] MEDS ORDERED: INSULIN ASPART SUPPLEMENTAL SCALE SQ SCH (12:00)
== END 2017-10-04 14:09 | disposition home or self-care (01) ==
LOC: NEPE 08:03 → NEDA 11:50 → NEPGCP 13:14
PROVIDERS: ADMIT Hospitalist; ATTEND Hospitalist
DX: R42 Dizziness and giddiness (principal); R11.0 Nausea; R55 Syncope and collapse; R00.1 Bradycardia, unspecified; R94.31 Abnormal electrocardiogram [ECG] [EKG]; I25.10 Atherosclerotic heart disease of native coronary artery without angina pectoris; I25.2 Old myocardial infarction; I10 Essential (primary) hypertension; E78.00 Pure hypercholesterolemia, unspecified; E11.42 Type 2 diabetes mellitus with diabetic polyneuropathy; F41.9 Anxiety disorder, unspecified; J44.9 Chronic obstructive pulmonary disease, unspecified; K58.9 Irritable bowel syndrome, unspecified; K76.0 Fatty (change of) liver, not elsewhere classified; M02.30 Reiter's disease, unspecified site; H70.93 Unspecified mastoiditis, bilateral; H91.90 Unspecified hearing loss, unspecified ear; Z87.891 Personal history of nicotine dependence; Z79.899 Other long term (current) drug therapy; Z79.84 Long term (current) use of oral hypoglycemic drugs; Z86.73 Personal history of transient ischemic attack (TIA), and cerebral infarction without residual deficits
CPT/HCPCS: 70450; 70544; 70551; 80048; 80053; 82948; 85025; 93005; 93880; 96360; 97161; 99285; G0378; G8987; G8988; J7030